=== PATIENT | male | born 1975 | race Hispanic/Latino ===

== ENCOUNTER 2024-01-28 14:44 | Emergency (ER) | payer SELFPAY ==
[2024-01-28] MEDS ORDERED: Mag-Al 1200 mg/1200 mg/30 ML UDCUP ONE (15:00)
[2024-01-28] MEDS ORDERED: Lidocaine Viscous Sol 2% 15 ml UD Cup ONE (15:00)
== END 2024-01-28 15:20 | disposition home or self-care (01) ==
LOC: BURERS 14:44
DX: T17.228A Food in pharynx causing other injury, initial encounter (principal)
CPT/HCPCS: 70360; 99283